=== PATIENT | male | born 1995 | race Caucasian/White ===

== ENCOUNTER 2020-05-23 15:59 | Emergency (ER) | payer BC, SELFPAY ==
--- NOTE | 2020-05-23 16:08 | ED.NAVMDI ---
HPI - Nausea/Vomiting/Diarrhea General Chief complaint: Nausea/Vomiting/Diarrhea Stated complaint: vomiting/nausea/dizzy/light headed Source: patient and RN notes reviewed Mode of arrival: ambulatory Limitations: no limitations History of Present Illness HPI Narrative: 24 yo male presents to the [facility] with C/O nausea and vomiting since evening.Has RLQ pain. reports that he has been unable to drink or eat with out vomiting since night. Denies fevers but states that he has felt hot and cold with sweating since . Related Data Home Medications Medication Instructions Recorded Confirmed No Home Medications 05/23/20 05/23/20 Allergies Allergy/AdvReac Type Severity Reaction Status Date / Time amoxicillin Allergy Unknown Rash Verified 05/23/20 16:26 AMOXICILLIN TRIHYDRATE Allergy Unknown Rash Uncoded 05/23/20 16:26 LIQUID GEL CAPS Allergy Unknown Swelling Uncoded 05/23/20 16:19 Review of Systems Review of Systems: Narrative: CONSTITUTIONAL: Denies fever. reports chills, or sweats. EYES: Denies visual changes, redness, or discharge. ENT: Denies rhinorrhea, congestion, sore throat, or otalgia. CARDIOVASCULAR: Denies chest pain, palpitations, or edema. RESPIRATORY: Denies cough or dyspnea. GASTROINTESTINAL: Reports right lower quadrant abdominal pain, nausea, vomiting.denies diarrhea. GENITOURINARY: Denies dysuria or hematuria. SKIN: Denies rash or itching. MUSCULOSKELETAL: Denies back pain, joint pain, or myalgia. NEUROLOGIC: Denies headache, numbness, or weakness. PSYCHIATRIC: Denies anxiety or depression. All other systems reviewed are negative, except as documented in HPI. [facility] Family History Family History Other Diabetes mellitus Family history of coronary artery disease Family history of malignant neoplasm Hypertension Social History Social History Smoking status: Never smoker Alcohol intake: never Comments Denies any medical, surgical history. Does not take any medications at this time. at the time of my signature, I reviewed and agree with the nursing past medical, surgical, social, and family history. There is no relevant family history pertinent to the patient complaint. Exam Narrative: Exam Narrative: GENERAL: This is a well-nourished, well-developed patient, in no apparent distress. Thin in appearance HEAD: normocephalic, atraumatic. EYES: PERRL. Sclera clear/white. Vision is grossly intact. THROAT: Mucous membranes moist, posterior pharynx clear. NECK: Neck supple, non-tender without lymphadenopathy, masses or thyromegaly. CARDIOVASCULAR: Regular rate and rhythm without murmurs, gallops, or rubs. RESPIRATORY: Clear to auscultation. Breath sounds equal bilaterally. No wheezes, rales, or rhonchi. GASTROINTESTINAL: Abdomen soft, right lower quadrant pain tenderness, rebound tenderness. nondistended. Bowel sounds are active. No hepato-splenomegaly, or palpable masses. SKIN: warm, intact with no suspicious lesions or rash, good texture and turgor. NEURO: awake, alert, and oriented to person, place and time. There were no obvious focal neurologic abnormalities. EXTREMITIES: No clubbing, cyanosis, or edema. No joint tenderness, effusion, or edema noted. No calf tenderness. BACK: Nontender without deformity or crepitance. No flank tenderness. Course Course Emergency Course: Due to patient reporting that he has vomited 30 times and Saturday. Has not been able to keep fluids down for 4 days, the right lower quadrant pain recommended that the patient go to a local emergency room. Offered to transfer to [place], states he would rather go to [facility]. Vital Signs Vital signs: Vital Signs Temperature 99.3 F 05/23/20 16:09 Pulse Rate 78 05/23/20 16:09 Respiratory Rate 16 05/23/20 16:09 Blood Pressure 113/69 05/23/20 16:09 Pulse Oximetry 100
[2020-05-23 16:09] VITALS: BP 113/69; PULSE 78; RESP 16; TEMP 37.4; O2SAT 100
== END 2020-05-23 16:34 | disposition short-term general hospital (02) ==
PROVIDERS: Emergency Provider Nurse Practitioner; PCP Family Medicine
DX: R10.31 Right lower quadrant pain (principal); R11.2 Nausea with vomiting, unspecified
CPT/HCPCS: 99212; G0463

== ENCOUNTER 2020-11-10 13:25 | Emergency (ER) | payer BC, SELFPAY ==
[2020-11-10 13:56] VITALS: BP 115/73; PULSE 95; RESP 16; TEMP 37.4; O2SAT 100
--- NOTE | 2020-11-10 14:29 | ED.EAR ---
HPI - Ear Problem General Chief complaint: Ear Stated complaint: ear pain Time Seen by Provider: 11/10/20 14:20 Source: patient and RN notes reviewed Mode of arrival: ambulatory Limitations: no limitations History of Present Illness HPI Narrative: Patient presents today with a 2 to 3-month history of bilateral ear pain, muffled hearing. Associated symptoms include headache, fatigue, rhinorrhea. Denies ear drainage. Currently rates pain 2/10 and has sporadically been taking Advil with some relief. Patient bought an ear curette with a camera on it like to his smart phone. Reports pictures from this curette showed a middle ear infection. He presents today for confirmation and antibiotics. MD Complaint: ear pain Related Data Home Medications Medication Instructions Recorded Confirmed No Home Medications 05/23/20 11/10/20 Allergies Allergy/AdvReac Type Severity Reaction Status Date / Time amoxicillin Allergy Unknown Rash Verified 11/10/20 13:56 AMOXICILLIN TRIHYDRATE Allergy Unknown Rash Uncoded 11/10/20 13:56 LIQUID GEL CAPS Allergy Unknown Swelling Uncoded 11/10/20 13:56 Review of Systems Review of Systems: CONSTITUTIONAL: Denies body aches, fever, chills, or sweats.+ Fatigue EYES: Denies visual changes, redness, or discharge. ENT: Denies congestion, sore throat. + Bilateral ear pain and muffled hearing CARDIOVASCULAR: Denies chest pain, palpitations, or edema. RESPIRATORY: Denies cough or dyspnea. GASTROINTESTINAL: Denies abdominal pain, nausea, vomiting, or diarrhea. GENITOURINARY: Denies dysuria or hematuria. SKIN: Denies rash, itching, or wounds. MUSCULOSKELETAL: Denies back pain, joint pain, or myalgia. NEUROLOGIC: Denies numbness, tingling, or weakness.+ Headache PSYCH: Denies depression or anxiety. [facility] Family History Family History Other Diabetes mellitus Family history of coronary artery disease Family history of malignant neoplasm Hypertension Social History Social History Smoking status: Never smoker Alcohol intake: never Comments At time of signature, I have reviewed and agree with nursing past medical, surgical, social and family history unless otherwise noted. Please see nursing chart for further information. There is no relevant family history pertinent to the presenting complaint Exam Narrative: GENERAL: Well-appearing, well-nourished, and in no acute distress. HEAD: Normocephalic, atraumatic. EYES: EOMI. No redness or drainage. Conjunctivae normal. ENT: Mucous membranes pink and moist. Nares clear. No rhinorrhea. Bilateral middle ear effusions without evidence of infection. Throat normal. Uvula midline. NECK: Normal AROM. Supple. No lymphadenopathy. CHEST: No respiratory distress. EXTREMITIES: Normal range of motion. No edema. SKIN: Warm, dry, no rash. Capillary refill normal. Normal skin turgor. NEURO: No focal deficits. Alert and oriented x3. Gait steady. PSYCH: Normal affect. No signs of depression or anxiety. Course Vital Signs Vital signs: Vital Signs Temperature 99.4 F 11/10/20 13:56 Pulse Rate 95 11/10/20 13:56 Respiratory Rate 16 11/10/20 13:56 Blood Pressure 115/73 11/10/20 13:56 Pulse Oximetry 100 11/10/20 13:56 Temperature 99.4 F 11/10/20 13:56 Pulse Rate 95 11/10/20 13:56 Respiratory Rate 16 11/10/20 13:56 Blood Pressure 115/73 11/10/20 13:56 Pulse Oximetry 100 11/10/20 13:56 Reviewed Medical Decision Making Differential Diagnosis Differential Diagnosis: Otitis media, otitis externa, ruptured TM, serous otitis, eustachian tube dysfunction Vital Signs Vital Signs: Vital Signs Temperature 99.4 F 11/10/20 13:56 Pulse Rate 95 11/10/20 13:56 Respiratory Rate 16 11/10/20 13:56 Blood Pressure 115/73 11/10/20 13:56 Pulse Oximetry 100 11/10/20 13:56 Temperature 99.4 F
== END 2020-11-10 14:38 | disposition home or self-care (01) ==
PROVIDERS: Emergency Provider Nurse Practitioner; PCP Family Medicine
DX: H65.93 Unspecified nonsuppurative otitis media, bilateral (principal)
CPT/HCPCS: 99211; G0463